=== PATIENT | female | born 1975 | race Caucasian/White ===

== ENCOUNTER 2020-10-18 14:58 | Emergency (ER) | payer BC ==
--- NOTE | 2020-10-18 15:10 | EDM.PDOC ---
ED HPI GENERAL MEDICAL PROBLEM - General Chief Complaint: ENT Problem Stated Complaint: RIGHT EAR LEAKING FLUID Time Seen by Provider: 10/18/20 15:00 Source of Information: Reports: Patient History Limitations: Reports: No Limitations - History of Present Illness INITIAL COMMENTS - FREE TEXT/NARRATIVE: HISTORY AND PHYSICAL: History of present illness: Patient is a 45 year old female who presents to the ED with complaints of right ear pain x1 week. She states she recently moved up here from [place] and has been taking allergy medication. She initially thought that the ear pain was related to seasonal allergies but feels like there is fluid in her ear. She is concerned she may have an ear infection. Denies any injury, trauma or hearing loss. Patient denies any fever, chills, headache, change in vision, syncope or near syncope. Denies any chest pain, back pain, shortness of breath or cough. Denies any GI or symptoms. Patient has been eating and drinking appropria tely. Review of systems: As per history of present illness and below otherwise all systems reviewed and negative. Past medical history: As per history of present illness and as reviewed below otherwise noncontributory. Surgical history: As per history of present illness and as reviewed below otherwise noncontributory. Social history: See social history for further information Family history: As per history of present illness and as reviewed below otherwise noncontributory. Physical exam: General: Well developed and well nourished 45 year old female. Alert and orientated x 3. Nontoxic in appearance and in no acute distress. Vital signs are stable and have been reviewed by me. Nursing notes were reviewed. HEENT: Atraumatic, normocephalic, pupils equal and reactive bilaterally, ne gative for conjunctival pallor or scleral icterus, mucous membranes moist, left TMs normal, right TM is erythematous with effusion. No pain with pulling the pinna, no mastoid tenderness. Throat clear, neck supple, nontender, trachea midline. No drooling or trismus noted. No meningeal signs. No hot potato voice noted. Lungs: Clear to auscultation bilaterally. Normal work of breathing, no accessory muscles used. Heart: S1S2, regular rate and rhythm Skin: Intact, warm, dry. No lesions or rashes noted. Hematologic: No petechiae or purpra. Mucosa appropriate color and normal nail bed color and refill. Extremities: Atraumatic, moves all extremities per self without difficulty or deficits. Neurovascular unremarkable. Neuro: Awake, alert, oriented. Cranial nerves II through XII unremarkable. Ce rebellum unremarkable. Motor and sensory unremarkable throughout. Exam nonfocal. Psychiatric: Mood and affect are appropriate. Normal thought process. Answering questions appropriately. Notes: *This patient was seen and evaluated during the 2019 SARS-CoV-2 novel coronavirus pandemic period. Community viral transmission is ongoing at time of this encounter and the emergency department is operating under pandemic response procedures. I have talked with the patient about today's findings, in addition to providing specific details for plan of care. Reassessment at the time of disposition demo nstrates that the patient is in no acute distress. The patient is stable for discharge, counseling was provided and we discussed in great detail signs and symptoms that would prompt them to return to the Emergency Department. Medication, follow up and supportive care measures were reviewed and discussed. Voices understanding and is agreeable to plan of care. Denies any further questions or concerns at this time. Diagnostics: None Therapeutics: None Prescription: Augmentin Impression: Otitis media with effusion, right Plan: 1. You were evaluated today on an emergent basis. Your ear is infected. Please take the antibiotic as prescribed. For the fluid behind the ear, please take a decongestant such as Afrin or Sudafed. 2. You can alternate Tylenol and ibuprofen as needed for pain and fever management. 3. We encourage you to follow up with your primary care provider and/or recommended specialist in the next few days for re-evaluation and further care/management. 4. If your symptoms should worsen, new symptoms develop or any of the signs and symptoms we discussed should arise please return to the emergency room or call 911 (if needed). Definitive disposition and diagnosis as appropriate pending reevaluation and review of above. - Related Data Allergies Allergy/AdvReac Type Severity Reaction Status Date / Time codeine Allergy Vomiting Verified 10/18/20 15:11 tramadol Allergy Vomiting Verified 10/18/20 15:11 Home Meds: Home Meds Amoxicillin/Clavulanate K [Augmentin 875-125 MG] 1 tab PO BID 10 Days #20 tablet 10/18/20 [Rx] Fexofenadine/Pseudoephedrine [Leyla-D 24 Hour Tablet] 1 each PO DAILY 10/18/20 [History] Linaclotide [Linzess] 290 mcg PO DAILY 10/18/20 [History] Omeprazole 40 mg PO DAILY 10/18/20 [History] Simethicone [Gas-X] 125 mg PO BID 10/18/20 [History] Spironolactone [Aldactone] 25 mg PO DAILY 10/18/20 [History] buPROPion HCL [Wellbutrin Xl] 150 mg PO DAILY 10/18/20 [History] ED ROS ENT - Review of Systems Review Of Systems: Comprehensive ROS is negative, except as noted in HPI. ED EXAM, ENT - Physical Exam Exam: See Below (See dictation) Course - Vital Signs Last Recorded V/S: Last Vital Signs Temp 97.4 F 10/18/20 15:13 Pulse 76 10/18/20 15:13 Resp 16 10/18/20 15:13 BP 95/56 L 10/18/20 15:13 Pulse Ox 99 10/18/20 15:13 Departure - Departure Time of Disposition: 15:23 Disposition: Home, Self-Care 01 Clinical Impression: Acute otitis media with effusion of right ear - Discharge Information Prescriptions: Amoxicillin/Clavulanate K [Augmentin 875-125 MG] 1 tab PO BID 10 Days #20 tablet Instructions: Otitis Media, Adult, [id number] Forms: ED Department Discharge Additional Instructions: The following information is given to patients seen in the emergency department who are being discharged to home. This information is to outline your options for follow-up care. We provide all patients seen in our emergency department with a follow-up referral. The need for follow-up, as well as the timing and circumstances, are variable depending upon the specifics of your emergency department visit. If you don't have a primary care physician on staff, we will provide you with a referral. We always advise you to contact your personal physician following an emergency department visit to inform them of the circumstance of the visit and for follow-up with them and/or the need for any referrals to a consulting specialist. The emergency department will also refer you to a specialist when appropriate. This referral assures that you have the opportunity for follow-up care with a specialist. All of these measure are taken in an effort to provide you with optimal care, which includes your follow-up. Under all circumstances we always encourage you to contact your private physician who remains a resource for coordinating your care. When calling for follow-up care, please make the office aware that this follow-up is from your recent emergency room visit. If for any reason you are refused follow-up, please contact the [facility] Emergency Department at and asked to speak to the emergency department charge nurse. [facility] [address] [place] [address] [facility] [address] [place] [id number] Thank you for choosing the [facility] emergency department in [place] for your medical needs today. It was a pleasure caring for you. Today you were seen in the emergency department for ear infection. 1. You were evaluated today on an emergent basis. Your ear is infected. Please take the antibiotic as prescribed. For the fluid behind the ear, please take a decongestant such as Afrin or Sudafed. 2. You can alternate Tylenol and ibuprofen as needed for pain and fever management. 3. We encourage you to follow up with your primary care provider and/or recommended specialist in the next few days for re-evaluation and further care/management. 4. If your symptoms should worsen, new symptoms develop or any of the signs and symptoms we discussed should arise please return to the emergency room or call 911 (if needed). Sepsis Event Note (ED) - Focused Exam Vital Signs: Vital Signs Temp Pulse Resp BP Pulse Ox 10/18/20 15:13 97.4 F 76 16 95/56 L 99
== END 2020-10-18 15:30 | disposition home or self-care (01) ==
LOC: MW.ED 14:58
DX: H65.191 Other acute nonsuppurative otitis media, right ear (principal); Z88.5 Allergy status to narcotic agent; Z79.899 Other long term (current) drug therapy
CPT/HCPCS: 99282